=== PATIENT | female | born 1950 | race Two or more races ===

== ENCOUNTER 2016-10-02 09:10 | Inpatient (IN) | payer OTHER ==
[~2016-10-02] VITALS: Ht 149.9 cm; Wt 79.4 kg
[2016-10-02] VITALS (7 sets, daily range): BP systolic 110–144; BP diastolic 49–82
[2016-10-02] MEDS ORDERED: CEFAZOLIN SODIUM/DEXTROSE,ISO 50 ML IV ONE (09:54)
[2016-10-02] MEDS ORDERED: LACT10SO PO (10:17)
[2016-10-02] MEDS ORDERED: CHOL100040 PO (10:17)
[2016-10-02] MEDS ORDERED: DULO20CA PO (10:17)
[2016-10-02] MEDS ORDERED: ZOLP10TA2 PO (10:17)
[2016-10-02] MEDS ORDERED: ALPR0.5T8 PO (10:17)
[2016-10-02] MEDS ORDERED: RANI150T12 PO (10:17)
[2016-10-02] MEDS ORDERED: CAPT12.53 PO (10:17)
[2016-10-02] MEDS ORDERED: OXYB1PAT4 TD (10:17)
[2016-10-02] MEDS ORDERED: METF500T PO (10:17)
[2016-10-02] MEDS ORDERED: HYDR-3658 PO (10:17)
[2016-10-02] MEDS ORDERED: HYDR10SY7 PO (10:17)
[2016-10-02] MEDS ORDERED: GABA300C PO (10:17)
[2016-10-02] MEDS ORDERED: TRANEXAMIC ACID 3,000 MG in SODIUM CHLORIDE IRRIG SOLUTION 70 ML IR ONE (11:00)
[2016-10-02] MEDS ORDERED: IV LR 1000 ML 1,000 ML ONE (11:03)
[2016-10-02] MEDS ORDERED: SECONDARY IV SET 1 EA INFUS.SET MC ONE ×3 (11:04→21:28)
[2016-10-02] MEDS ORDERED: IV SET PRIMARY 1 EA INFUS.SET MC ONE (11:04)
[2016-10-02] MEDS ORDERED: NEEDLELESS EST SET LARGE BORE 1 EA INFUS.SET MC ONE (11:04)
[2016-10-02] MEDS ORDERED: BUPIVACAINE MPF 0.5% W/EPI INJ 30 ML VIAL ONE (11:22)
[2016-10-02] MEDS ORDERED: KETOROLAC TROMETHAMINE INJ 30 MG/ML VIAL ONE (11:22)
[2016-10-02] MEDS ORDERED: BACITRACIN 50000 UNITS/VIAL ONE (11:22)
[2016-10-02] MEDS ORDERED: HYDROMORPHONE INJ 2 MG/ML DISP.SYRIN ONE (12:09)
[2016-10-02] MEDS ORDERED: HYDROMORPHONE 1 MG/1 ML DISP.SYRIN ONE ×3 (13:01→13:40)
[2016-10-02] MEDS ORDERED: FENTANYL PF 100MCG/2ML AMPUL ONE ×2 (13:09→13:20)
[2016-10-02] MEDS ORDERED: NALOXONE HCL 0.4 MG/ML AMPUL IV PRN (14:30)
[2016-10-02] MEDS ORDERED: oxyCODONE IR immediate release 5 MG CAPSULE PO PRN (14:30)
[2016-10-02] MEDS ORDERED: hydrOXYzine 10 MG TABLET PO PRN ×2 (15:00→19:00)
[2016-10-02] MEDS ORDERED: SENOKOT 8.6 MG TABLET PO PRN (16:00)
[2016-10-02] MEDS ORDERED: AMBIEN 5 MG TABLET PO PRN (16:00)
[2016-10-02] MEDS ORDERED: COLACE 250 MG CAPSULE PO PRN (16:00)
[2016-10-02] MEDS ORDERED: DULCOLAX 10 MG/SUPP.RECT RC PRN (16:00)
--- NOTE | 2016-10-02 16:15 | NUR ---
OR PATIENT RECEIVED AFTER REPORT RECEIVED FROM WES RN, PATIENT ORIENTED TO PRIMARY RN, UNIT, ROOM, BED, AND UNIT POLICIES REGARDING PATIENT CARE AND VISITING HOURS. PATIENT ENCOURAGED TO CALL IF SHE NEEDS SOMETHING. ALL QUESTIONS AND CONCERNS ADDRESSED. PATIENT VERBALIZED UNDERSTANDING.
[2016-10-02] MEDS ORDERED: IV SET PRIMARY PUMP SET 1 EA INFUS.SET MC ONE (16:20)
[2016-10-02] MEDS ORDERED: SET PCA INFUSE SET 1 EA INFUS.SET MC ONE (16:21)
[2016-10-02] MEDS ORDERED: MAG HYDROX/AL HYDROX/SIMETH 30 ML UDC PO PRN ×2 (16:30→17:00)
[2016-10-02] MEDS ORDERED: ALPRAZOLAM 0.25 MG TABLET PO PRN (16:30)
[2016-10-02] MEDS ORDERED: diphenhydrAMINE HCL 25 MG CAPSULE PO PRN (16:30)
[2016-10-02] MEDS ORDERED: CLONIDINE HCL 0.1 MG TABLET PO PRN (16:30)
[2016-10-02] MEDS ORDERED: ONDANSETRON HCL/PF 4 MG/2 ML VIAL IV PRN (16:30)
[2016-10-02] MEDS ORDERED: ACETAMINOPHEN 325 MG TABLET PO PRN (17:00)
[2016-10-02] MEDS ORDERED: ONDANSETRON HCL/PF 4 MG/2 ML VIAL IVP PRN (17:00)
[2016-10-02] MEDS ORDERED: MAGNESIUM HYDROXIDE 30 ML UDC PO PRN (17:00)
[2016-10-02] MEDS ORDERED: HYDROCODONE/APAP 5/325MG 1 EACH TABLET PO PRN (17:00)
[2016-10-02] MEDS ORDERED: Z GUARD REMEDY 2 OZ OINT TP PRN (17:00)
[2016-10-02] MEDS: DOCUSATE SODIUM 100 MG CAPSULE PO SCH (17:31)
[2016-10-02] MEDS: GABAPENTIN 300 MG CAPSULE PO SCH (17:33)
[2016-10-02] MEDS: HYDROMORPHONE MDV 30 MG in IV NS 0.9% 15 ML, PCA TOTAL VOLUME 1 BAG IV PRN ×3 (18:04)
--- NOTE | 2016-10-02 19:00 | NUR ---
CHANGE OF SHIFT REPORT PT RESTING COMFORTABLY IN BED. NO S/S OR C/O PAIN OR DISTRESS NOTED. SIDE RAILS UP X2, CALL LIGHT LEFT WITHIN REACH. PT KEPT CLEAN, DRY, AND COMFORTABLE. NO SIGNIFICANT CHANGES SINCE ADMISSION. WILL GIVE REPORT TO JANY LINDER. Addendum: 10/02/16 at 1903 by AICHA RITTER RN [facility]: [employer] [facility] [employer]
--- NOTE | 2016-10-02 19:00 | NUR ---
CROWNING HAMMER OPERATOR OPENING NOTES RECEIVED PATIENT IN BED, AWAKE, NO IV SITE INTACT PATIENT REMOVED. HAVE MULTIPLE COMPLAINTS AND SHE SAID SHE IS ANXIOUS.PATIENT TEACHING WAS GIVEN, NO S/S OF BLEEDING NOTED. KEPT CLEAN DRY AND COMFORTABLE. NO S/S OF DISTRESS. SR 76'S. SAFE HAZARD FREE ENVIRONMENT PROVIDED. WILL CONTINUE TO MONITOR PATIENT.
--- NOTE | 2016-10-02 19:00 | NUR ---
RECEIVED PATIENT WITH STEEL POURER HELPER PUMP DILAUDID 30 MG WITH CONCENTRATION 1MG/ML STEEL POURER HELPER DOSE 0.2 MG LO: 10 MIN, 4HR LIMIT 4MG.
--- NOTE | 2016-10-02 19:15 | NUR ---
IV RFA, G22 INTROCAN, WAS INSERTED WITH GOOD BLOOD RETURN, TOLERATED PROCEDURE WELL. IV LINE CONNECTED TO THE SOCIAL MEDIA ASSISTANT PUMP WAS HOOK ONGOING LR IV HYDRATION 75 CC/HR RUNNING.
[2016-10-02] MEDS ORDERED: PNEUMOCOCCAL 23-VAL P-SAC VAC 0.5 ML VIAL SQ ONE (20:00)
[2016-10-02] MEDS: ZOLPIDEM TARTRATE 5 MG TABLET PO PRN (20:38)
[2016-10-02] MEDS: CEFAZOLIN 1 GM in IV D5W 50 ML IV SCH (20:41)
[2016-10-02] MEDS: CHOLECALCIFEROL 1,000 UNIT TABLET (VIT D3) PO SCH (21:39)
[2016-10-02] MEDS: FAMOTIDINE (20 MG) 20 MG TABLET PO SCH (21:39)
[2016-10-02] MEDS: ALPRAZOLAM 0.5 MG TABLET PO SCH (21:39)
[2016-10-02] MEDS: IV LR 1000 ML 1,000 ML IV PRN (21:51)
[2016-10-02] MEDS: PANTOPRAZOLE 40 MG TABLET.DR PO SCH (21:57)
[2016-10-02] MEDS ORDERED: ZOLPIDEM TARTRATE 5 MG TABLET PO PRN (22:00)
[2016-10-02] MEDS ORDERED: GABAPENTIN 300 MG CAPSULE PO SCH (22:00)
[2016-10-03] VITALS (8 sets, daily range): BP systolic 101–135; BP diastolic 41–77
[2016-10-03] MEDS: ALPRAZOLAM 0.25 MG TABLET PO PRN ×2 (00:56→18:26)
[2016-10-03] MEDS: CEFAZOLIN 1 GM in IV D5W 50 ML IV SCH (05:06)
--- NOTE | 2016-10-03 06:26 | NUR ---
[facility] CLOSING NOTES PATIENT COMFORTABLY ASLEEP AND EASILY AWAKEN, HEAD OF BED ELEVATED FOR BETTER LUNG EXPANSION ON 2L NC, O2 SAT 100%. IV HYDRATION ONGOING LR AT 75 CC, IV SITE IN THE RFA INTACT WITH NO S/S OF INFILTRATED, PATIENT DENIES PAIN AT THIS TIME. RESPIRATIONS EVEN AND UNLABORED. LUNG SOUNDS CLEAR UPON AUSCULTATION, NO S/S OF ACUTE DISTRESS, NO SOB, NO COUGH, NO CONGESTION, SKIN WARM AND DRY TO TOUCH, AFEBRILE, ALL NURSING CARE NEEDS PROVIDED AND RENDERED, NEEDS ATTENDED AND ANTICIPATED, KEPT CLEAN AND DRY AND COMFORTABLE, BLADDER NOT DISTENDED, GOOD SKIN ARE PROVIDED. ABDOMEN SOFT AND NON TENDER. NO C/O OF CONSTIPATION. ALL DUE MEDS WAS GIVEN TOLERATED. FREQUENT VISUAL CHECK DONE FOR SAFETY EVERY 2 HOURS. ASSISTED REPOSITIONED EVERY 2 HOURS FOR COMFORT AND SKIN MGT. SAFE HAZARD FREE ENVIRONMENT PROVIDED. CALL LIGHT WITHIN EASY TO REACH, ON LOW BED AT ALL TIMES TO ENSURE SAFETY, WILL ENDORSE TO THE NEXT SHIFT CONTINUE PLAN OF CARE. NO S/S OF HYPO/HYPERGLYCEMIA, F/C INTACT DRAINING YELLOW VIA GRAVITY WITH NO SEDIMENTS, NO HEMATURIA, NO CLOUDINESS. GOOD FC CARE PROVIDED. INSTRUCTOR PRODUCT INSPECTION PUMP ONGOING SAME SETTING IN THE E-AUG.
[2016-10-03 06:40] LABS: BASOPHILS % (AUTO) 0.3 % (0.0-2.0); EOSINOPHILS % (AUTO) 0.1 % (0.0-6.0); HEMATOCRIT 29 % (33-45); HEMOGLOBIN 9.4 g/dL (11.5-14.8); LYMPHOCYTES # (AUTO) 1.7 /CMM (0.8-4.8); LYMPHOCYTES % (AUTO) 14.4 % (20.0-44.0); MEAN CORPUSCULAR HEMOGLOBIN 32 PG (26.0-33.0); MEAN CORPUSCULAR HGB CONC 33 g/dl (31.0-36.0); MEAN CORPUSCULAR VOLUME 96 fL (82-100); MONOCYTES # (AUTO) 0.7 /CMM (0.1-1.30); MONOCYTES % (AUTO) 6.1 % (2.0-12.0); NEUTROPHILS # (AUTO) 9.5 /CMM (1.8-8.9); NEUTROPHILS % (AUTO) 79.1 % (43.0-81.0); PLATELET COUNT (AUTO) 288 /CMM (150-450); RDW COEFFICIENT OF VARIATION 14.9 (11.5-15.0); RED BLOOD CELL COUNT(AUTO) 2.98 MIL/uL (4.0-5.2)
[2016-10-03 07:06] LABS: CALCIUM, SERUM 8.4 mg/dL (8.5-10.1); CREATININE 0.7 mg/dL (0.6-1.3); MAGNESIUM 1.9 mg/dL (1.8-2.4); PHOSPHORUS 3.6 mg/dL (2.5-4.9); POTASSIUM 4.3 mmol/L (3.5-5.1)
--- NOTE | 2016-10-03 07:13 | NUR ---
RECEIVED 6.7 MG OF DILAUDID IN 12 HOURS SHIFT VIA SUPPLY CHAIN ENGINEER PUMP
--- NOTE | 2016-10-03 08:00 | NUR ---
RN NOTES ALERT & ORIENTED X3; R KNEE DRSG WITH MARIAMA WRAP CDI; POSITIVE CMS TO RLE; JANEE HOSE & SCDS BLE; R KNEE IMMOBILIZER IN PLACE; STATES R KNEE PAIN IS A 4 OUT OF 10 & TOLERABLE; INSTRUCTED TO USE APARTMENT RENTAL CLERK PUMP TO CONTROL PAIN; WILL CONTINUE TO MONITOR.
[2016-10-03] MEDS: OXYBUTYNIN CHLORIDE 5 MG TABLET PO SCH ×2 (08:56→16:57)
[2016-10-03] MEDS: METFORMIN 500 MG TABLET PO SCH (08:57)
[2016-10-03] MEDS: DOCUSATE SODIUM 100 MG CAPSULE PO SCH ×2 (08:58→16:57)
[2016-10-03] MEDS: FAMOTIDINE (20 MG) 20 MG TABLET PO SCH ×2 (08:58→21:27)
[2016-10-03] MEDS: GABAPENTIN 300 MG CAPSULE PO SCH ×3 (08:58→16:57)
[2016-10-03] MEDS: ASPIRIN 325 MG TABLET PO SCH (08:58)
[2016-10-03] MEDS: ALPRAZOLAM 0.5 MG TABLET PO SCH (09:00)
[2016-10-03] MEDS ORDERED: GABAPENTIN 300 MG CAPSULE PO SCH (09:00)
[2016-10-03] MEDS ORDERED: DULOXETINE HCL 20 MG CAPSULE.DR PO SCH (09:00)
[2016-10-03] MEDS ORDERED: DULOXETINE HCL 30 MG CAPSULE.DR PO SCH ×2 (09:00)
[2016-10-03] MEDS: LACTULOSE 10 G/15 ML UDC (PYXIS) PO SCH (09:00)
[2016-10-03] MEDS: CAPTOPRIL 12.5 MG TABLET PO SCH ×3 (09:04→17:00)
[2016-10-03] MEDS: CHOLECALCIFEROL 1,000 UNIT TABLET (VIT D3) PO SCH ×2 (09:08→16:57)
[2016-10-03] MEDS: IV LR 1000 ML 1,000 ML IV PRN (11:22)
[2016-10-03] MEDS: oxyCODONE IR immediate release 5 MG CAPSULE PO PRN ×2 (11:39→15:33)
--- NOTE | 2016-10-03 11:40 | NUR ---
RN NOTES BED BATH GIVEN; C/O R KNEE PAIN 7 OUT OF 10; OXYCODONE 10MG PO GIVEN; WILL CONTINUE TO MONITOR.
--- NOTE | 2016-10-03 15:35 | NUR ---
RN NOTES CPM to RLE removed; patient c/o RLE pain 8 out of 10, oxycodone 10mg po given; patient repositioned on L side; heels floated off matress; R knee immobilizer in place; SCDs to BLE; R knee myra wrap cdi; positive CMS to RLE; teresa continue to monitor.
--- NOTE | 2016-10-03 17:06 | NUR ---
RN NOTES CALLED DR. CRISOSTOMO PT COMPLAINING OF CONSTIPATION, REQUESTING LACTULOSE TO BE INCREASED IN FREQUENCY PER MD TO GIVE PRN MILK OF MAGNESIA ORDERED NO CHANGE TO LACTULOSE ORDERS. PER DR. CRISOSTOMO D/C IV FLUIDS AND TO D/C FERGUSON CATHETER WHEN PT IS AMBULATING
--- NOTE | 2016-10-03 17:11 | NUR ---
RN NOTES c/o RLE pain & MORROW 8 out of 10; instructed too early for PO pain meds; instructed to use WORD PROCESSING SUPERVISOR dilaudid; patient repositioned on her back; bilateral heels floated off matress; R knee with myra wrap drsg cdi; positive cms to RLE; R knee immobilizer in place; will continue to monitor.
[2016-10-03] MEDS ORDERED: SET PCA INFUSE SET 1 EA INFUS.SET MC ONE (17:48)
[2016-10-03] MEDS: HYDROMORPHONE MDV 30 MG in IV NS 0.9% 15 ML, PCA TOTAL VOLUME 1 BAG IV PRN ×3 (18:06)
--- NOTE | 2016-10-03 18:30 | NUR ---
RN NOTES patient pulled up in bed; R knee drsg with myra wrap drsg cdi; R knee immobilizer in place; SCDs to BLE; positive CMS to BLE; c/o RLE pain 8 out of 10; instructed on use of TRAIL MAINTENANCE WORKER pump; patient anxious; xanax 1mg po given; will inform PM nurse.
--- NOTE | 2016-10-03 19:30 | NUR ---
RN NOTES: -RECEIVED AWAKE LYING ON BED,.ALERT AND COHERENT,HEELS FLOATED OFF THE MATRESS. RIGHT KNEE IMMOBILIZER IN PLACE,SCD ON BLE,RIGHT KNEE MARIAMA WRAP CDI,ON CHIEF INFORMATION SECURITY OFFICER PUMP,ON FERGUSON CATH DRAINING INTO YELLOWISH COLORED URINE AT 50 CC LEVEL, FALL SAFETY AND ASPIRATION PRECAUTION OBSERVE, CALL LIGHT WITHIN REACH.
[2016-10-03] MEDS: PANTOPRAZOLE 40 MG TABLET.DR PO SCH (21:27)
--- NOTE | 2016-10-03 21:30 | NUR ---
RN NOTES: CONTINUE TO MONITOR,CALLS AND NEEDS ATTENDED,SPO2 MONITORED ON O2 AT 2L/MIN SPO2 92%,REQUEST TO GET HER AMBIEN FOR SLEEP,ABLE TO NAP AT SHORT INTERVALS. -NOTICE O2 SAT DECREASE TO 88%,PUT ION HIGH FOWLERS AND KEPT COMFORTABLE IN BED,SPO2 IMPROVED INCREASE TO 96%,WILL KEEP MONITORING.
--- NOTE | 2016-10-03 21:45 | NUR ---
RN NOTES; PATINE WAS IN DEEP SLEEP,AMBIEN WAS NOT GIVEN,NO SIGN OF SOB OR RESPIRATORY DISTRESS NOTES, CALL LIGHT WITH IN REACH.
--- NOTE | 2016-10-03 23:32 | NUR ---
RN NOTES: KEPT ON FREQUENT VISUAL CHECK, SPO2 95% ON 02 AT 2L/MIN,SLEEPING COMFORTABLY IN BED,BED LOW AND LOCKED,CALL LIGHT WITH IN REACH.
[2016-10-04] MEDS: oxyCODONE IR immediate release 5 MG CAPSULE PO PRN (06:16)
--- NOTE | 2016-10-04 06:16 | NUR ---
RN NOTES: TURNING AND REPOSITONING DONE, PATIENT COMPLAINED OF BACK PAIN /, PUT PILLOW TO SUPPORT HER BACK SHE CLAIMED SHE HAS A CHRONIC BACK PAIN,NON PHARMACOLOGIC INTERVENTION RENDERED, REQUEST FOR PAIN PILL, GIVEN LATEST BP1/ VT-79 SPO2-96%, CALL LIGHT WITHIN EASY REACH.
--- NOTE | 2016-10-04 07:02 | NUR ---
RN NOTES: STILL WITH ON AND OFF PAIN, CALL LIGHT WITHIN REACH, SHE JUST RECEIVED HER PAIN PILL, EXPLAINED TO HER TO WAIT FOR AWHILE TO TAKE EFFECT.ENDORSED FOR CONTINUITY OF CARE.BED LOW AND LOCKED. Addendum: 10/04/16 at 0705 by REAGAN MAX RN -ON PRECISION INSTRUMENT MAKER AND REPAIRER PUMP,MEDICATION TAKEN PER PATIENT NEED.
--- NOTE | 2016-10-04 07:30 | NUR ---
MS RN RECEIVED ON BED, AWAKE,ALERT,ORIENTED X4,S/P LEFT KNEE SURGERY W/ DRESSING CLEAN AND DRY W/ KNEE IMMOBILIZER ON. ON PROGRAM ARRANGER PUMP, WILL MONITOR PATIENT.
[2016-10-04 08:00] VITALS: BP 146/69
[2016-10-04 08:18] LABS: BASOPHILS % (AUTO) 0.2 % (0.0-2.0); EOSINOPHILS # (AUTO) 0.3 /CMM (0.0-0.7); EOSINOPHILS % (AUTO) 2.3 % (0.0-6.0); HEMATOCRIT 31 % (33-45); HEMOGLOBIN 10.1 g/dL (11.5-14.8); LYMPHOCYTES # (AUTO) 1.4 /CMM (0.8-4.8); MEAN CORPUSCULAR HEMOGLOBIN 32 PG (26.0-33.0); MEAN CORPUSCULAR HGB CONC 33 g/dl (31.0-36.0); MEAN CORPUSCULAR VOLUME 96 fL (82-100); MONOCYTES # (AUTO) 0.7 /CMM (0.1-1.30); NEUTROPHILS # (AUTO) 11.6 /CMM (1.8-8.9); NEUTROPHILS % (AUTO) 82.5 % (43.0-81.0); PLATELET COUNT (AUTO) 293 /CMM (150-450); RDW COEFFICIENT OF VARIATION 15.1 (11.5-15.0); RED BLOOD CELL COUNT(AUTO) 3.19 MIL/uL (4.0-5.2); WHITE BLOOD COUNT (AUTO) 14.1 K/uL (4.3-11.0)
[2016-10-04] MEDS: FAMOTIDINE (20 MG) 20 MG TABLET PO SCH ×2 (08:24→23:21)
[2016-10-04] MEDS: DULOXETINE HCL 20 MG CAPSULE.DR PO SCH (08:24)
[2016-10-04] MEDS: ASPIRIN 325 MG TABLET PO SCH (08:24)
[2016-10-04] MEDS: LACTULOSE 10 G/15 ML UDC (PYXIS) PO SCH (08:24)
[2016-10-04] MEDS: DOCUSATE SODIUM 100 MG CAPSULE PO SCH ×2 (08:25→17:31)
[2016-10-04] MEDS: OXYBUTYNIN CHLORIDE 5 MG TABLET PO SCH ×2 (08:25→17:32)
[2016-10-04] MEDS: GABAPENTIN 300 MG CAPSULE PO SCH ×3 (08:25→17:32)
[2016-10-04] MEDS: CHOLECALCIFEROL 1,000 UNIT TABLET (VIT D3) PO SCH ×2 (08:25→17:32)
[2016-10-04] MEDS: METFORMIN 500 MG TABLET PO SCH (08:25)
--- NOTE | 2016-10-04 08:30 | NUR ---
MS LINDER BREAKFAST SERVED,DUE MEDS GIVEN,TOLERATED WELL.
[2016-10-04] MEDS: CAPTOPRIL 12.5 MG TABLET PO SCH ×3 (08:31→18:20)
[2016-10-04 08:36] LABS: CREATININE 0.7 mg/dL (0.6-1.3); POTASSIUM 4.1 mmol/L (3.5-5.1)
[2016-10-04 09:25] VITALS: BP 146/69
--- NOTE | 2016-10-04 11:00 | NUR ---
ms rn got up w/ pt, seated on a chair,tolerated well.
[2016-10-04 16:00] VITALS: BP 148/77
--- NOTE | 2016-10-04 16:30 | NUR ---
MS RN WAS SEEN BY DR. CERVANTES W/ ROSCOE TO D/C TACTICAL AIR DEFENSE CONTROLLER ONCE CONSUMED.
--- NOTE | 2016-10-04 17:00 | NUR ---
ms rn patient complained of burning on urination, text .
--- NOTE | 2016-10-04 17:30 | NUR ---
ms tracy arriaga text back w/ order to ligia/rocky ahumada and send specimen for u/a.
--- NOTE | 2016-10-04 18:00 | NUR ---
ms tracy ahumada d/cd, will monitor for output.
[2016-10-04] MEDS: ALPRAZOLAM 0.25 MG TABLET PO PRN (18:37)
--- NOTE | 2016-10-04 19:00 | NUR ---
ms rn on bed, no distress noted all needs attended.
--- NOTE | 2016-10-04 19:10 | NUR ---
MS RN NOTES: RECEIVED PATIENT IN BED AWAKE. PT IS A/O X4. KEPT PT'S SKIN CLEAN, DRY, AND COMFORTABLE. CALL LIGHT WITHIN PT'S REACH. BED KEPT IN LOCKED, LOWEST POSITION, AND SIDE RAILS X2 UP. PT'S IV ON RIGHT FOREARM #20 AND IS PATENT AND INTACT. PT IS ON 2LPM VIA NC AND IS TOLERATING WELL. PT ON CASH CROP FARMER DILAUDID CONCENTRATION AT 1MG/ML, RATE 0 MG/HR, NO BASAL RATE, CASH CROP FARMER DOSE= 0.2MG, LOCKOUT = 10 MINUTES. PT ON CONTINUOS PULSE OX SATURATION AT 97-98%. NO SIGNS OR SYMPTOMS OF DISTRESS NOTED. WILL CONTINUE TO MONITOR PT.
[2016-10-04 20:00] VITALS: BP 85/55
[2016-10-04 20:14] LABS: APPEARANCE,URINE CLEAR (CLEAR); BILIRUBIN,URINE NEGATIVE (NEGATIVE); BLOOD, URINE NEGATIVE Ery/uL (NEGATIVE); COLOR,URINE YELLOW (YELLOW); KETONES,URINE NEGATIVE (NEGATIVE); LEUKOCYTE ESTERASE ,URINE NEGATIVE (NEGATIVE); NITRITE, URINE NEGATIVE (NEGATIVE); PROTEIN,URINE NEGATIVE (NEGATIVE); UGLUCOSE NEGATIVE (NEGATIVE); UROBILINOGEN,URINE 0.2 EU/dL (0.2)
[2016-10-04] MEDS ORDERED: LACTULOSE 10 G/15 ML UDC (PYXIS) PO PRN (20:30)
--- NOTE | 2016-10-04 20:30 | NUR ---
MS RN NOTES: DC PHOTO INTERN DILAUDID, PT USED 6.4MG, AMOUNT REMAINING ON THE BAG IS 25ML, RN COSIGNED/WITNESSED BY SATHYA LINDER.
[2016-10-04 20:31] VITALS: BP 85/55
[2016-10-04 21:00] VITALS: BP 119/65
[2016-10-04] MEDS: PANTOPRAZOLE 40 MG TABLET.DR PO SCH (23:21)
[2016-10-05] MEDS: ZOLPIDEM TARTRATE 5 MG TABLET PO PRN (00:25)
--- NOTE | 2016-10-05 00:25 | NUR ---
MS RN NOTES: PATIENT REQUESTED FOR AMBIEN 5MG PO. PT'S BP WAS 128/69 P86 ; PULSE OX 98% AND TEMPERATURE 98.1 ; WILL CONTINUE TO MONITOR PT.
--- NOTE | 2016-10-05 01:25 | NUR ---
MS RN NOTES: PT IS SEEN SLEEPING AT THIS TIME. WILL CONTINUE TO MONITOR PT.
--- NOTE | 2016-10-05 02:00 | NUR ---
MS RN NOTES: PT ASSISTED TO BEDPAN TO URINATE. PT WAS ALSO OFFERED PAIN MEDICATION BUT DENIED AT THIS TIME AND REPORTED SHE WILL TRY TO GO BACK TO SLEEP. WILL CONTINUE TO MONITOR PT.
[2016-10-05 02:59] VITALS: BP 85/55
[2016-10-05] MEDS: HYDROMORPHONE 1 MG/1 ML DISP.SYRIN SQ PRN ×3 (03:24→16:02)
--- NOTE | 2016-10-05 03:24 | NUR ---
MS RN NOTES: PATIENT COMPLAINED OF 8/10 R LEG PAIN. BLOOD PRESSURE WAS 123/68 HR 90, RR 20, AND PULSE OX AT 98%. PT RECEIVED DILAUDID 1MG SQ. WILL CONTINUE TO MONITOR PT.
[2016-10-05 06:58] LABS: BASOPHILS % (AUTO) 0.2 % (0.0-2.0); EOSINOPHILS # (AUTO) 0.4 /CMM (0.0-0.7); EOSINOPHILS % (AUTO) 2.9 % (0.0-6.0); HEMATOCRIT 32 % (33-45); HEMOGLOBIN 10.3 g/dL (11.5-14.8); LYMPHOCYTES # (AUTO) 1.7 /CMM (0.8-4.8); LYMPHOCYTES % (AUTO) 11.4 % (20.0-44.0); MEAN CORPUSCULAR HEMOGLOBIN 32 PG (26.0-33.0); MEAN CORPUSCULAR HGB CONC 32 g/dl (31.0-36.0); MEAN CORPUSCULAR VOLUME 97 fL (82-100); MONOCYTES # (AUTO) 0.9 /CMM (0.1-1.30); MONOCYTES % (AUTO) 5.9 % (2.0-12.0); NEUTROPHILS # (AUTO) 11.5 /CMM (1.8-8.9); NEUTROPHILS % (AUTO) 79.6 % (43.0-81.0); PLATELET COUNT (AUTO) 297 /CMM (150-450); RED BLOOD CELL COUNT(AUTO) 3.28 MIL/uL (4.0-5.2); WHITE BLOOD COUNT (AUTO) 14.5 K/uL (4.3-11.0)
[2016-10-05 07:03] LABS: CREATININE 0.7 mg/dL (0.6-1.3); POTASSIUM 4.1 mmol/L (3.5-5.1)
[2016-10-05] MEDS: oxyCODONE IR immediate release 5 MG CAPSULE PO PRN ×3 (07:04→14:24)
--- NOTE | 2016-10-05 07:07 | NUR ---
MS RN CLOSING NOTES: PT LAYING IN BED AWAKE. PT IS A/O X4. KEPT PT'S SKIN CLEAN, DRY, AND COMFORTABLE. BED SNOW AND CALL LIGHT WITHIN PT'S REACH. BED KEPT IN LOCKED, LOWEST POSITION, AND SIDE RAILS X2 UP. PT'S IV ON RIGHT FOREARM #20 AND IS PATENT AND INTACT. PT IS ON 2LPM VIA NC AND IS TOLERATING WELL. PT ON CONTINUOS PULSE OX SATURATION AT 97-98%. NO SIGNS OR SYMPTOMS OF DISTRESS NOTED. PT COMPLAINED OF 7/10 PAIN ON RIGHT LEG. PATIENT WAS GIVEN OXY 10MG PO. VITAL SIGNS WAS 126/62 HR90. PULSE OX WAS 96% AND RR 18. WILL ENDORSE TO AM NURSE ABOUT CONTINUITY OF CARE.
--- NOTE | 2016-10-05 07:36 | NUR ---
MS RN INITIAL NOTES REPORT RECEIVED AT THE BEDSIDE. PATIENT IS RESTING COMFORTABLY IN BED. NO SOB OR DISTRESS NOTED AT THIS TIME. PATIENT REPORTS TOLERABLE PAIN, POST PAIN MEDICATION. BED IN A LOW POSITION, CALL LIGHT WITHIN PATIENT REACH. WILL CONTINUE TO MONITOR.
[2016-10-05 08:00] VITALS: BP 101/68
[2016-10-05] MEDS: FAMOTIDINE (20 MG) 20 MG TABLET PO SCH (08:57)
[2016-10-05] MEDS: METFORMIN 500 MG TABLET PO SCH (08:58)
[2016-10-05] MEDS: CHOLECALCIFEROL 1,000 UNIT TABLET (VIT D3) PO SCH (08:58)
[2016-10-05] MEDS: DOCUSATE SODIUM 100 MG CAPSULE PO SCH (08:58)
[2016-10-05] MEDS: DULOXETINE HCL 20 MG CAPSULE.DR PO SCH (08:58)
[2016-10-05] MEDS: ASPIRIN 325 MG TABLET PO SCH (08:58)
[2016-10-05] MEDS: GABAPENTIN 300 MG CAPSULE PO SCH ×2 (08:59→12:45)
[2016-10-05] MEDS: OXYBUTYNIN CHLORIDE 5 MG TABLET PO SCH (08:59)
[2016-10-05] MEDS: CAPTOPRIL 12.5 MG TABLET PO SCH ×2 (08:59→12:46)
[2016-10-05 12:46] VITALS: BP 126/70
--- NOTE | 2016-10-05 14:06 | NUR ---
MS RN NOTES PATIENT STATES HER DRESSING WAS CHANGED EARLY THIS MORNING AND WILL NOT ALLOW ME TO TAKE A PICTURE OF THE SURGICAL SITE. EXPLAINED TO THE PATIENT THE IMPORTANCE, BUT PATIENT STILL REFUSES.
--- NOTE | 2016-10-05 16:35 | NUR ---
MS ORNAMENTAL METAL ERECTOR NOTES DISCHARGE INSTRUCTIONS GIVEN TO PATIENT AND AND ABLE TO UNDERSTAND. ALL PAPERWORK SIGNED AND BELONGINGS ACCOUNTED FOR. PATIENT DISCHARGED WITH CPM, ICE MACHINE, WALKER AND BEDSIDE COMMODE. VITAL SIGNS CHECKED AND RECORDED. NO SOB OR DISTRESS NOTED. PATIENT MEDICATED PRIOR TO DC. PICTURE OF SURGICAL INCISION NOT TAKEN PATIENT REFUSED TO HAVE DRESSING REMOVED IT WAS CHANGED IN EARLY AM. FLU AND PNEUMONIA NOT GIVEN PATIENT IS LESS THAN 67 AND OUT OF [place]. PAIN MED PRESCRIPTION GIVEN TO PATIENT WITH DC ORDERS. PATIENT IS DISCHARGED HOME, VIA PRIVATE CAR, WITH . PATIENT LEFT IN STABLE CONDITION, VIA WHEEL CHAIR.
== END 2016-10-05 16:35 | disposition home health service (06) | DRG 470 ==
LOC: DS 09:10 → MED 14:00 → TELE 16:57 → MED 10-03 10:44
PROVIDERS: ADMIT Family Medicine; ATTEND Family Medicine
PROC: 0SRC0J9 Replacement of Right Knee Joint with Synthetic Substitute, Cemented, Open Approach (ICD-10-PCS; principal; 2016-10-02 14:10)
DX: M17.11 Unilateral primary osteoarthritis, right knee (principal); F13.20 Sedative, hypnotic or anxiolytic dependence, uncomplicated; E11.9 Type 2 diabetes mellitus without complications; I10 Essential (primary) hypertension; E03.9 Hypothyroidism, unspecified; Z90.49 Acquired absence of other specified parts of digestive tract; K21.9 Gastro-esophageal reflux disease without esophagitis; M79.7 Fibromyalgia; G47.33 Obstructive sleep apnea (adult) (pediatric); E66.01 Morbid (severe) obesity due to excess calories; D72.829 Elevated white blood cell count, unspecified; F41.0 Panic disorder [episodic paroxysmal anxiety]; F32.9 Major depressive disorder, single episode, unspecified
CPT/HCPCS: 36415; 71010-TC; 80048-TC; 80061-TC; 81000-TC; 82962-TC; 83735-TC; 84100-TC; 85025-TC; 86850-TC; 86921-TC; 87081-TC; 94760-TC; 94799-TC; 97001-TC; 97110-TC; 97116-TC; 97530-TC; A4216; A4217; A4606; A6253; A6402; C1713; J0690; J1170; J1885; J3010; J3490; J7060; J7120; L1830; Q0163; Q0177; Z7610